=== PATIENT | female | born 1945 | race Caucasian/White ===

== ENCOUNTER 2016-09-12 09:38 | Emergency (ER) | payer MEDICARE, OTHER ==
[2016-09-12] MEDS ORDERED: Orphenadrine Citrate 60 MG/2 ML VIAL ONE (10:17)
[2016-09-12] MEDS ORDERED: Ketorolac Tromethamine 60 MG/2 ML VIAL ONE (10:17)
[2016-09-12 10:35] LABS: #Eosinphils 0.1 thou/uL (0.0-0.7); #Lymphocytes 1.3 thou/uL (1.20-3.40); #Monocytes 0.6 thou/uL (0.11-0.59); #Neutrophils 5.8 thou/uL (1.40-6.50); %Basophils 0.5 % (0.0-1.0); %Eosinophils 1.9 % (0.0-10.0); %Lymphocytes 16.1 % (21.0-51.0); %Neutrophils 74.5 % (42.0-75.0); Hemoglobin 14.1 g/dL (12.0-16.0); Mean Corpuscular HGB CONC 34.2 g/dL (32.0-36.0); Mean Corpuscular Hemoglobin 32.2 pg (27.0-31.0); Mean Platelet Volume 9.7 fL (7.4-10.4); Platelet Count 190 thou/uL (130-400); RBC Distribution Width 11.8 % (11.5-14.5); Red Blood Cell (RBC) Count 4.37 mill/uL (4.20-5.40); White Blood Cell (WBC) Count 7.8 thou/uL (4.8-10.8)
[2016-09-12 10:54] LABS: ALT (SGPT) 12 U/L (0-55); AST (SGOT) 16 U/L (5-34); Alkaline Phosphatase 110 U/L (40-150); Anion Gap 14 mmol/L (10-20); BUN (Urea Nitrogen) 11 mg/dL (9.8-20.1); Calc. Creatinine Clearance 0 mL/min (70-130); Calcium 9.5 mg/dL (7.8-10.44); Carbon Dioxide 28 mmol/L (23-31); Chloride 104 mmol/L (98-107); Estimated GFR-MDRD 73; Globulin 3.3 g/dL (2.4-3.5); Glucose 102 mg/dL (83-110); Potassium 4.5 mmol/L (3.5-5.1); Protein, Total 7.3 g/dL (5.8-8.1); Sodium 141 mmol/L (136-145)
[2016-09-12] MEDS ORDERED: Dexamethasone 10 MG/ML VIAL ONE (11:00)
[2016-09-12] MEDS ORDERED: methylPREDNISolone Acetate 40 mg/ml Vial ONE (11:00)
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
== END 2016-09-12 11:20 | disposition home or self-care (01) ==
LOC: MADERS 09:38
DX: M48.02 Spinal stenosis, cervical region (principal); M54.12 Radiculopathy, cervical region
CPT/HCPCS: 36415; 72125; 80053; 85025; 96372; J1030; J1040; J1100; J1885; J2360

== ENCOUNTER 2017-01-17 14:21 | Emergency (ER) | payer MEDICARE, OTHER ==
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
== END 2017-01-17 15:22 | disposition home or self-care (01) ==
LOC: MADERS 14:21
DX: G44.209 Tension-type headache, unspecified, not intractable (principal); V89.2XXA Person injured in unspecified motor-vehicle accident, traffic, initial encounter
CPT/HCPCS: 70450; 72125

== ENCOUNTER 2018-02-28 22:32 | Emergency (ER) | payer MEDICARE, OTHER ==
[2018-02-28] MEDS ORDERED: Ketorolac Tromethamine 60 MG/2 ML VIAL ONE (23:14)
== END 2018-02-28 23:55 | disposition home or self-care (01) ==
LOC: MADERS 22:32
DX: S39.82XA Other specified injuries of lower back, initial encounter (principal); F43.9 Reaction to severe stress, unspecified; X58.XXXA Exposure to other specified factors, initial encounter
CPT/HCPCS: 96372; J1885

== ENCOUNTER 2020-02-27 20:43 | Emergency (ER) | payer MEDICARE ==
[~2020-02-27 20:43] MED LIST: Aspirin Chewable 81 MG TAB ONE
[2020-02-27 21:25] LABS: #Basophils 0.1 thou/uL (0.0-0.2); #Eosinphils 0.2 thou/uL (0.0-0.7); #Lymphocytes 1.9 thou/uL (1.20-3.40); #Monocytes 0.4 thou/uL (0.11-0.59); #Neutrophils 2.7 thou/uL (1.40-6.50); %Basophils 1.4 % (0.0-1.0); %Eosinophils 3.4 % (0.0-10.0); %Lymphocytes 36.5 % (21.0-51.0); %Monocytes 6.9 % (0.0-10.0); %Neutrophils 51.8 % (42.0-75.0); Hemoglobin 12.6 g/dL (12.0-16.0); Mean Corpuscular HGB CONC 32.6 g/dL (32.0-36.0); Mean Corpuscular Hemoglobin 29.9 pg (27.0-31.0); Mean Corpuscular Volume 91.7 fL (78.0-98.0); Mean Platelet Volume 7.8 fL (7.4-10.4); Platelet Count 228 thou/uL (130-400); RBC Distribution Width 11.1 % (11.5-14.5); White Blood Cell (WBC) Count 5.2 thou/uL (4.8-10.8)
[2020-02-27 21:35] LABS: PTT 30.6 sec (22.9-36.1); Prothrombin Time 13.1 sec (12.0-14.7)
[2020-02-27 21:45] LABS: ALT (SGPT) 15 U/L (8-55); AST (SGOT) 19 U/L (5-34); Albumin 3.8 g/dL (3.4-4.8); Alkaline Phosphatase 93 U/L (40-110); Anion Gap 15 mmol/L (10-20); BUN (Urea Nitrogen) 16 mg/dL (9.8-20.1); Bilirubin, Total 0.3 mg/dL (0.2-1.2); CK (CPK) 49 U/L (29-168); Calc. Creatinine Clearance 0 mL/min (70-130); Calcium 8.3 mg/dL (7.8-10.44); Carbon Dioxide 28 mmol/L (23-31); Chloride 105 mmol/L (98-107); Estimated GFR-MDRD 71; Globulin 2.9 g/dL (2.4-3.5); Glucose 85 mg/dL (83-110); Potassium 3.7 mmol/L (3.5-5.1); Protein, Total 6.7 g/dL (6.0-8.3); Sodium 144 mmol/L (136-145)
--- NOTE | 2020-02-27 21:49 | CT ---
CT BRAIN 02/27/20 PROVIDED CLINICAL HISTORY: Altered mental status. FINDINGS: Comparison 02/20/20. The ventricular system appears normal in size and morphology. There is no evidence for intracranial h emorrhage or mass effect. Chronic microvascular ischemic changes are similar to prior. The extracranial soft tissues and osseous structures demonstrate an unremarkable CT appearance. IMPRESSION: No evidence for intracranial hemorrhage or mass effect. POS: [facility]
--- NOTE | 2020-02-27 21:51 | RAD ---
PORTABLE CHEST: 02/27/20 PROVIDED CLINICAL HISTORY: Syncope. FINDINGS: Comparison 02/20/20. The cardiac and mediastinal silhouette is unchanged in appearance. No focal consolidation, pleural fl uid or pneumothorax apparent. IMPRESSION: No evidence for an acute cardiopulmonary process. POS: [facility]
[2020-02-27] MEDS ORDERED: Aspirin Chewable 81 MG TAB ONE (22:49)
[2020-02-27 23:50] LABS: Bilirubin Negative (Negative); Blood, Urine Trace (Negative); Clarity Clear (Clear); Glucose, Urine (Dipstick) Negative (Negative); Ketone, Urine Negative (Negative); Leukocyte Small (Negative); Nitrite Negative (Negative); Protein, Urine (Dipstick) Negative (Neg-Trace); Specific Gravity, Urine 1.025 (1.005-1.030); Urobilinogen 0.2 mg/dL (Less than 2); pH, Urine 6.5 (5.0-9.0)
[2020-02-28 00:15] LABS: Bacteria/HPF Rare-Few HPF (None Seen)
== END 2020-02-27 23:27 | disposition short-term general hospital (02) ==
LOC: MADERS 20:43
DX: R55 Syncope and collapse (principal); F43.9 Reaction to severe stress, unspecified; Z87.891 Personal history of nicotine dependence; Z79.1 Long term (current) use of non-steroidal anti-inflammatories (NSAID); Z79.899 Other long term (current) drug therapy
CPT/HCPCS: 36415; 70450; 71045; 80053; 81003; 81015; 82550; 83605; 84443; 84484; 85025; 85610; 85730; 93005

== ENCOUNTER 2020-03-06 15:31 | Emergency (ER) | payer MEDICARE ==
[2020-03-06] MEDS ORDERED: Dexamethasone 10 MG/ML VIAL ONE (16:15)
[2020-03-06] MEDS ORDERED: Acetaminophen 500 MG TAB ONE (16:16)
--- NOTE | 2020-03-06 17:42 | RAD ---
LUMBAR SPINE 3 VIEWS: Date: 03/06/2020 HISTORY: Pain for 4 days. No trauma. COMPARISON: None. FINDINGS: There is mild levoscoliosis of the upper lumbar spine. There is likely a bone island along the right SI joint and can be seen in a CT exam from 2008. Large left-sided L1-2, L2-3, and L3-4 disc osteophyte complexes. Grade I L4-5 anterolisthesis, due to facet arthrosis, which is relatively high grade at L4-5 and L5-S 1. No acute sacral fracture. Small erosions of both SI joints. No dilated loops of large or small bowel. No abnormal calcification projects over renal shadows. IMPRESSION: 1. Moderate degenerative disease without acute fracture or malalignment. 2. Mild 17 degree levoscoliosis of the lumbar spine. 3. Right ilium bone island. 4. No acute fracture of the lumbar spine. POS: [facility]
== END 2020-03-06 16:30 | disposition home or self-care (01) ==
LOC: MADERS 15:31
DX: M54.5 Low back pain (principal); I48.91 Unspecified atrial fibrillation; Z87.891 Personal history of nicotine dependence; Z79.899 Other long term (current) drug therapy
CPT/HCPCS: 72100; 96372; J1100

== ENCOUNTER 2020-03-09 21:21 | Emergency (ER) | payer MEDICARE ==
[2020-03-09 22:09] LABS: #Lymphocytes 0.8 thou/uL (1.20-3.40); #Monocytes 0.3 thou/uL (0.11-0.59); #Neutrophils 5.4 thou/uL (1.40-6.50); %Basophils 0.4 % (0.0-1.0); %Eosinophils 0.1 % (0.0-10.0); %Lymphocytes 12.1 % (21.0-51.0); %Monocytes 4.1 % (0.0-10.0); %Neutrophils 83.3 % (42.0-75.0); Hemoglobin 12.9 g/dL (12.0-16.0); Mean Corpuscular HGB CONC 32.8 g/dL (32.0-36.0); Mean Corpuscular Hemoglobin 30.1 pg (27.0-31.0); Mean Corpuscular Volume 91.7 fL (78.0-98.0); Mean Platelet Volume 8.9 fL (7.4-10.4); Platelet Count 279 thou/uL (130-400); RBC Distribution Width 11.5 % (11.5-14.5); White Blood Cell (WBC) Count 6.5 thou/uL (4.8-10.8)
[2020-03-09 22:24] LABS: ALT (SGPT) 75 U/L (8-55); AST (SGOT) 27 U/L (5-34); Albumin 3.8 g/dL (3.4-4.8); Alkaline Phosphatase 115 U/L (40-110); Anion Gap 17 mmol/L (10-20); BUN (Urea Nitrogen) 22 mg/dL (9.8-20.1); Bilirubin, Total 0.5 mg/dL (0.2-1.2); CK (CPK) 44 U/L (29-168); Calc. Creatinine Clearance 0 mL/min (70-130); Calcium 8.7 mg/dL (7.8-10.44); Carbon Dioxide 27 mmol/L (23-31); Chloride 102 mmol/L (98-107); Estimated GFR-MDRD 66; Globulin 3.4 g/dL (2.4-3.5); Glucose 187 mg/dL (83-110); Lipase 51 U/L (8-78); Potassium 4.2 mmol/L (3.5-5.1); Protein, Total 7.2 g/dL (6.0-8.3); Sodium 142 mmol/L (136-145)
[2020-03-09 22:47] LABS: CKMB 2.4 ng/mL (0-6.6)
--- NOTE | 2020-03-10 07:37 | RAD ---
PORTABLE CHEST: Date: 03/09/2020 HISTORY: Heart palpitations. FINDINGS: Mild cardiomegaly. Lung miller are clear. Vasculature within normal range. IMPRESSION: No acute process. POS: [facility]
== END 2020-03-10 00:13 | disposition short-term general hospital (02) ==
LOC: MADERS 21:21
DX: R00.2 Palpitations (principal); R42 Dizziness and giddiness; I48.91 Unspecified atrial fibrillation; F43.9 Reaction to severe stress, unspecified; Z87.891 Personal history of nicotine dependence; Z79.899 Other long term (current) drug therapy; Z79.01 Long term (current) use of anticoagulants
CPT/HCPCS: 71045; 80053; 82550; 82553; 83690; 84484; 85025; 93005; 94760

== ENCOUNTER 2020-07-18 19:31 | Outpatient (CLI) | payer MEDICARE ==
--- NOTE | 2020-07-18 19:54 | RAD ---
And: 3 views cervical spine COMPARISON: 06/03/2020 HISTORY: Pain. Degenerative disc disease FINDINGS: Stable anterior fusion plate with transverse vertebral body screw at C3, C4 and C5. Stable positioning of the fusion hardware. Disc prosthesis from C3-C4 through C6-C7 is identified. Cervical spine vertebral body heights are maintained. No fracture. Predental space is normal No paravertebral soft tissue swelling Stable grade 1 anterolisthesis of C7 upon T1. On the AP projection, stable multi level facet hypertrophy. On the open-mouth projection, limiting evaluation of the odontoid process. Lateral masses of C1 and C 2 articulate appropriately. IMPRESSION: Stable, uncomplicated cervical fusion
== END 2020-07-18 19:32 | disposition home or self-care (01) ==
LOC: MADRAD 19:31
PROVIDERS: ATTEND Transplant Surgery
DX: M50.30 Other cervical disc degeneration, unspecified cervical region (principal); Z98.1 Arthrodesis status
CPT/HCPCS: 72040

== ENCOUNTER 2021-01-29 15:51 | Emergency (ER) | payer MEDICARE ==
[2021-01-29 17:20] LABS: #Basophils 0.1 thou/uL (0.0-0.2); #Eosinphils 0.2 thou/uL (0.0-0.7); #Lymphocytes 1.6 thou/uL (1.20-3.40); #Monocytes 0.3 thou/uL (0.11-0.59); %Eosinophils 3.1 % (0.0-10.0); %Lymphocytes 25.6 % (21.0-51.0); %Monocytes 5.5 % (0.0-10.0); %Neutrophils 64.8 % (42.0-75.0); Hemoglobin 13.5 g/dL (12.0-16.0); Mean Corpuscular Hemoglobin 31.1 pg (27.0-31.0); Mean Corpuscular Volume 97.1 fL (78.0-98.0); Mean Platelet Volume 9.3 fL (7.4-10.4); Platelet Count 175 thou/uL (130-400); RBC Distribution Width 12.2 % (11.5-14.5); Red Blood Cell (RBC) Count 4.35 mill/uL (4.20-5.40); White Blood Cell (WBC) Count 6.2 thou/uL (4.8-10.8)
[2021-01-29 17:40] LABS: ALT (SGPT) 14 U/L (8-55); AST (SGOT) 17 U/L (5-34); Albumin 3.4 g/dL (3.4-4.8); Alkaline Phosphatase 82 U/L (40-110); Anion Gap 14 mmol/L (10-20); BUN (Urea Nitrogen) 19 mg/dL (9.8-20.1); Bilirubin, Total 0.5 mg/dL (0.2-1.2); CK (CPK) 58 U/L (29-168); Calc. Creatinine Clearance 0 mL/min (70-130); Calcium 9.2 mg/dL (7.8-10.44); Carbon Dioxide 25 mmol/L (23-31); Chloride 106 mmol/L (98-107); Globulin 2.8 g/dL (2.4-3.5); Glucose 159 mg/dL (83-110); Magnesium 1.8 mg/dL (1.6-2.6); Potassium 3.7 mmol/L (3.5-5.1); Protein, Total 6.2 g/dL (5.8-8.1); Sodium 141 mmol/L (136-145)
[2021-01-29 20:35] LABS: Troponin I Less than 0.010 ng/mL (< 0.028)
== END 2021-01-29 21:09 | disposition home or self-care (01) ==
LOC: MADERS 15:51
DX: R00.2 Palpitations (principal); R11.0 Nausea; I48.91 Unspecified atrial fibrillation; M19.90 Unspecified osteoarthritis, unspecified site; Z87.891 Personal history of nicotine dependence; Z79.82 Long term (current) use of aspirin; Z79.899 Other long term (current) drug therapy
CPT/HCPCS: 71045; 80053; 82550; 82553; 83735; 83880; 84443; 84484; 85025; 93005

== ENCOUNTER 2021-06-11 14:02 | Emergency (ER) | payer MEDICARE ==
[2021-06-11 15:15] LABS: #Basophils 0.1 thou/uL (0.0-0.2); #Eosinphils 0.1 thou/uL (0.0-0.7); #Lymphocytes 1.2 thou/uL (1.20-3.40); #Monocytes 0.4 thou/uL (0.11-0.59); #Neutrophils 4.8 thou/uL (1.40-6.50); %Basophils 0.9 % (0.0-1.0); %Lymphocytes 18.4 % (21.0-51.0); %Monocytes 5.5 % (0.0-10.0); %Neutrophils 73.2 % (42.0-75.0); Hemoglobin 13.9 g/dL (12.0-16.0); Mean Corpuscular HGB CONC 32.5 g/dL (32.0-36.0); Mean Corpuscular Volume 95.6 fL (78.0-98.0); Mean Platelet Volume 8.3 fL (7.4-10.4); Platelet Count 203 thou/uL (130-400); RBC Distribution Width 11.5 % (11.5-14.5); Red Blood Cell (RBC) Count 4.47 mill/uL (4.20-5.40); White Blood Cell (WBC) Count 6.5 thou/uL (4.8-10.8)
[2021-06-11 15:29] LABS: ALT (SGPT) 13 U/L (8-55); AST (SGOT) 15 U/L (5-34); Albumin 3.9 g/dL (3.4-4.8); Alkaline Phosphatase 85 U/L (40-110); Anion Gap 12 mmol/L (10-20); BUN (Urea Nitrogen) 12 mg/dL (9.8-20.1); Bilirubin, Total 0.8 mg/dL (0.2-1.2); Calc. Creatinine Clearance 0 mL/min (70-130); Calcium 9.6 mg/dL (7.8-10.44); Carbon Dioxide 29 mmol/L (23-31); Chloride 106 mmol/L (98-107); Globulin 2.9 g/dL (2.4-3.5); Glucose 97 mg/dL (83-110); Potassium 4.1 mmol/L (3.5-5.1); Protein, Total 6.8 g/dL (5.8-8.1); Sodium 143 mmol/L (136-145)
[2021-06-11 15:34] LABS: Acetaminophen Less than 6.0 mcg/mL (10.0-30.0); Alcohol Less than 10 mg/dL (Less than 10); Salicylate Less than 8.0 mg/dL (15.0-30.0)
[2021-06-11 15:47] LABS: CKMB 1.6 ng/mL (0-6.6)
[2021-06-11] MEDS ORDERED: Acetaminophen 325 MG TAB ONE (15:53)
[2021-06-11] MEDS ORDERED: Aspirin Chewable 81 MG TAB ONE (15:53)
[2021-06-11] MEDS ORDERED: Sodium Chloride 0.9% 1,000 ML ONE (16:42)
[2021-06-11 17:05] LABS: Bilirubin Negative (Negative); Blood, Urine Trace (Negative); Glucose, Urine (Dipstick) Negative (Negative); Ketone, Urine 15 mg/dL (Negative); Leukocyte Negative (Negative); Nitrite Negative (Negative); Protein, Urine (Dipstick) Negative (Neg-Trace); pH, Urine 7.5 (5.0-9.0)
[2021-06-11 17:12] LABS: Bacteria/HPF Rare-Few HPF (None Seen); Clarity Hazy (Clear); RBC/HPF 0-3 HPF (0-3); Squamous Epithelial 0-3 HPF (0-3); WBC/HPF 0-3 HPF (0-3)
[2021-06-11 17:13] LABS: Amphetamine Not Detected (NotDetected); Barbiturates Screen Not Detected (NotDetected); Benzodiazepine Screen Not Detected (NotDetected); Cocaine Metabolite Screen Not Detected (NotDetected); Medtox Control Line Valid? VALID (VALID); Methadone Not Detected (NotDetected); Methamphetamine Not Detected (NotDetected); Opiate Screen Not Detected (NotDetected); Oxycodone Screen Not Detected (NotDetected); Phencyclidine (PCP) Not Detected (NotDetected); THC/Cannabinoid Screen Not Detected (NotDetected); Tricyclic Screen Not Detected (NotDetected)
== END 2021-06-11 18:42 | disposition short-term general hospital (02) ==
LOC: MADERS 14:02
DX: R41.82 Altered mental status, unspecified (principal); R51.9 Headache, unspecified; E87.8 Other disorders of electrolyte and fluid balance, not elsewhere classified; R77.8 Other specified abnormalities of plasma proteins; I48.91 Unspecified atrial fibrillation; M19.90 Unspecified osteoarthritis, unspecified site; Z87.891 Personal history of nicotine dependence; Z79.82 Long term (current) use of aspirin; Z79.899 Other long term (current) drug therapy
CPT/HCPCS: 36416; 70450; 71045; 80053; 80306; 80307; 81003; 81015; 82553; 84443; 84484; 85025; 93005; J7050

== ENCOUNTER 2021-06-15 20:24 | Emergency (ER) | payer MEDICARE ==
[2021-06-15 21:55] LABS: Bilirubin Small (Negative); Blood, Urine Moderate (Negative); Glucose, Urine (Dipstick) Negative (Negative); Ketone, Urine 40 mg/dL (Negative); Leukocyte Negative (Negative); Nitrite Negative (Negative); Protein, Urine (Dipstick) 30 mg/dL (Neg-Trace)
[2021-06-15 22:04] LABS: Bacteria/HPF None Seen HPF (None Seen); Clarity Hazy (Clear); Mucous/LPF 3+ LPF (<2+); Squamous Epithelial 0-3 HPF (0-3); WBC/HPF 0-3 HPF (0-3)
[2021-06-15 22:10] LABS: ALT (SGPT) 16 U/L (8-55); AST (SGOT) 19 U/L (5-34); Albumin 3.9 g/dL (3.4-4.8); Alkaline Phosphatase 100 U/L (40-110); Anion Gap 13 mmol/L (10-20); BUN (Urea Nitrogen) 12 mg/dL (9.8-20.1); Bilirubin, Total 1.2 mg/dL (0.2-1.2); Calc. Creatinine Clearance 0 mL/min (70-130); Calcium 9.8 mg/dL (7.8-10.44); Carbon Dioxide 28 mmol/L (23-31); Chloride 100 mmol/L (98-107); Globulin 3.7 g/dL (2.4-3.5); Glucose 113 mg/dL (83-110); Potassium 3.9 mmol/L (3.5-5.1); Protein, Total 7.6 g/dL (5.8-8.1); Sodium 137 mmol/L (136-145)
[2021-06-15 22:18] LABS: Eosinophils 1 % (0-10); Hemoglobin 14.9 g/dL (12.0-16.0); Lymphocytes 12 % (21-51); MDiff Complete? YES; Mean Corpuscular HGB CONC 33.1 g/dL (32.0-36.0); Mean Corpuscular Hemoglobin 30.8 pg (27.0-31.0); Mean Corpuscular Volume 93.3 fL (78.0-98.0); Mean Platelet Volume 8.1 fL (7.4-10.4); Monocytes 2 % (0-10); Neutrophil 83 % (42-75); Platelet Count 228 thou/uL (130-400); RBC Distribution Width 11.2 % (11.5-14.5); RBC Morphology Normal; Reactive Lymphocytes 2 % (0-10); Red Blood Cell (RBC) Count 4.83 mill/uL (4.20-5.40)
[2021-06-15] MEDS ORDERED: Acetaminophen 500 MG TAB ONE (22:19)
== END 2021-06-15 23:51 | disposition home or self-care (01) ==
LOC: MADERS 20:24
DX: R53.1 Weakness (principal); H53.9 Unspecified visual disturbance; Z86.73 Personal history of transient ischemic attack (TIA), and cerebral infarction without residual deficits; I48.91 Unspecified atrial fibrillation; M19.90 Unspecified osteoarthritis, unspecified site; Z87.891 Personal history of nicotine dependence
CPT/HCPCS: 51701; 80053; 81003; 81015; 84484; 85025; 93005

== ENCOUNTER 2021-11-08 15:53 | Outpatient (CLI) | payer MEDICARE | END 2021-11-08 15:54 | disposition home or self-care (01) | LOC: MADRAD 15:53 | DX: R07.81 Pleurodynia (principal); W19.XXXA Unspecified fall, initial encounter | CPT/HCPCS: 71046 ==

== ENCOUNTER 2023-05-17 16:26 | Emergency (ER) | payer OTHER, MEDICARE ==
[2023-05-17] MEDS ORDERED: traMADol HCl 50 MG TAB ONE (19:17)
== END 2023-05-17 19:25 | disposition home or self-care (01) ==
LOC: MADERS 16:26
DX: S20.212A Contusion of left front wall of thorax, initial encounter (principal); I48.91 Unspecified atrial fibrillation; E78.00 Pure hypercholesterolemia, unspecified; Z87.891 Personal history of nicotine dependence; Z79.82 Long term (current) use of aspirin; Z79.01 Long term (current) use of anticoagulants; W01.0XXA Fall on same level from slipping, tripping and stumbling without subsequent striking against object, initial encounter
CPT/HCPCS: 71111

== ENCOUNTER 2025-03-04 14:21 | Emergency (ER) | payer MEDICARE ==
[~2025-03-04 14:21] MED LIST changes: -Aspirin Chewable 81 MG TAB ONE; +Iopamidol 370 76% 100 ML VIAL ONE
[2025-03-04 15:13] LABS: Glucose, Urine (Dipstick) Negative (Negative); Leukocyte Negative (Negative); Protein, Urine (Dipstick) 100 mg/dL (Neg-Trace); Specific Gravity, Urine Greater/Equal 1.030 (1.005-1.030)
[2025-03-04] MEDS ORDERED: Ondansetron PF 4 MG/2 ML Vial ONE (15:13)
[2025-03-04 15:14] LABS: Bacteria/HPF 2+ HPF (None Seen); CAUTI Indications for Culture Pelvic or flank pain
[2025-03-04 15:15] LABS: Urine Culture Reflex No No
[2025-03-04 15:31] LABS: Hematocrit 53.4 % (36.0-47.0); Hemoglobin 17.2 g/dL (12.0-16.0); MDiff Complete? YES; Mean Corpuscular Hemoglobin 29.2 pg (27.0-31.0); Mean Corpuscular Volume 90.4 fl (78.0-98.0); Platelet Adequacy Comment Appears Adequate; Platelet Count 367 10x3/uL (130-400); Red Blood Cell (RBC) Count 5.91 mill/uL (4.20-5.40); White Blood Cell (WBC) Count 19.9 10x3/uL (4.8-10.8)
[2025-03-04 15:36] LABS: ALT (SGPT) 11 U/L (Less than 34); AST (SGOT) 33 U/L (11-34); Albumin 4.1 g/dL (3.1-4.5); Alkaline Phosphatase 111 U/L (40-110); Anion Gap 23 mmol/L (10-20); BUN (Urea Nitrogen) 21 mg/dL (9.8-20.1); Bilirubin, Total 1.2 mg/dL (0.3-1.2); Calc. Creatinine Clearance 0 mL/min (70-130); Calcium 10.0 mg/dL (7.8-10.44); Carbon Dioxide 24 mmol/L (23-31); Chloride 97 mmol/L (98-107); Globulin 4.8 g/dL (2.4-3.5); Glucose 120 mg/dL (83-110); Lipase 60 U/L (8-78); Magnesium 1.7 mg/dL (1.6-2.6); Potassium 3.9 mmol/L (3.5-5.1); Sodium 140 mmol/L (136-145)
[2025-03-04 16:47] LABS: Troponin I 0.243 ng/mL (< 0.028)
[2025-03-04] MEDS ORDERED: Aspirin Chewable 81 MG TAB ONE (17:03)
[2025-03-04] MEDS ORDERED: Enoxaparin 80 MG (0.8 mL) SYRINGE ONE (17:04)
== END 2025-03-04 18:24 | disposition short-term general hospital (02) ==
LOC: MADERS 14:21
DX: A41.9 Sepsis, unspecified organism (principal); I21.4 Non-ST elevation (NSTEMI) myocardial infarction; N17.9 Acute kidney failure, unspecified; N39.0 Urinary tract infection, site not specified; I48.91 Unspecified atrial fibrillation; E78.00 Pure hypercholesterolemia, unspecified; Z86.73 Personal history of transient ischemic attack (TIA), and cerebral infarction without residual deficits; Z87.891 Personal history of nicotine dependence; Z79.82 Long term (current) use of aspirin; Z79.899 Other long term (current) drug therapy; Z79.02 Long term (current) use of antithrombotics/antiplatelets
CPT/HCPCS: 74177; 80053; 81001; 83605; 83690; 83735; 84484; 85025; 87040; 93005; 94760; J1650; J2543; J7030; 36415; 96361; 96365; 96372; 96375; 96376; Q9967

== ENCOUNTER 2025-05-16 18:02 | Outpatient (CLI) | payer MEDICARE ==
[2025-05-16 18:23] LABS: INR-International Normal Ratio 1.8; Prothrombin Time 20.6 sec (12.0-14.7)
== END 2025-05-16 18:03 | disposition home or self-care (01) ==
LOC: MADLAB 18:02
PROVIDERS: ATTEND Internal Medicine
DX: I51.81 Takotsubo syndrome (principal)
CPT/HCPCS: 85610